=== PATIENT | female | born 1950 | race Caucasian/White ===

== ENCOUNTER 2021-09-09 09:50 | Outpatient (CLI) | payer MEDICARE, BC ==
[2021-09-09 17:36] LABS: SARS-CoV-2 PCR by NAA Not Detected (NotDetected)
== END 2021-09-09 09:51 | disposition home or self-care (01) ==
LOC: CSHLAB 09:50
PROVIDERS: ATTEND Internal Medicine Gastroenterology
DX: Z01.812 Encounter for preprocedural laboratory examination (principal); Z20.822 Contact with and (suspected) exposure to COVID-19; K63.5 Polyp of colon
CPT/HCPCS: U0003; U0005

== ENCOUNTER 2021-09-12 07:17 | Day surgery (SDC) | payer MEDICARE, BC ==
[2021-09-10 14:44] VITALS: BMI 26.5
[2021-09-12] MEDS ORDERED: Lidocaine 1% MPF 2 ML VIAL ONE (07:48)
[2021-09-12] MEDS ORDERED: PROPOFOL 40 ML ONE (08:15)
[2021-09-12] MEDS ORDERED: PROPOFOL 20 ML ONE (08:16)
== END 2021-09-12 09:31 | disposition home or self-care (01) ==
LOC: CSHSDC 07:17
PROVIDERS: ATTEND Internal Medicine Gastroenterology
PROC: 0DBK8ZZ Excision of Ascending Colon, Via Natural or Artificial Opening Endoscopic (ICD-10-PCS; principal; 2021-09-12)
PROC: 0DBH8ZZ Excision of Cecum, Via Natural or Artificial Opening Endoscopic (ICD-10-PCS; 2021-09-12)
DX: Z12.11 Encounter for screening for malignant neoplasm of colon (principal); K63.5 Polyp of colon; D12.2 Benign neoplasm of ascending colon; K57.30 Diverticulosis of large intestine without perforation or abscess without bleeding; K64.9 Unspecified hemorrhoids; F41.8 Other specified anxiety disorders; E03.9 Hypothyroidism, unspecified; I10 Essential (primary) hypertension
CPT/HCPCS: 88305; J2704

== ENCOUNTER 2023-01-20 09:30 | Outpatient (CLI) | payer MEDICARE, BC | END 2023-01-20 09:31 | disposition home or self-care (01) | LOC: CSHRAD 09:30 | PROVIDERS: ATTEND Internal Medicine | DX: J40 Bronchitis, not specified as acute or chronic (principal) | CPT/HCPCS: 71046 ==